=== PATIENT | male | born 1960 | race Caucasian/White ===

== ENCOUNTER 2022-09-26 22:19 | Emergency (ER) | payer MEDICAID, OTHER ==
[~2022-09-26] VITALS: Ht 165.1 cm; Wt 74.0 kg
[2022-09-27 03:33] VITALS: BP 138/76
== END 2022-09-27 06:13 | disposition home or self-care (01) ==
LOC: ER 22:19
DX: S01.01XA Laceration without foreign body of scalp, initial encounter (principal); F10.129 Alcohol abuse with intoxication, unspecified; I10 Essential (primary) hypertension; R51.9 Headache, unspecified; W01.0XXA Fall on same level from slipping, tripping and stumbling without subsequent striking against object, initial encounter; Y93.89 Activity, other specified; Y92.89 Other specified places as the place of occurrence of the external cause; Y99.8 Other external cause status; Y90.8 Blood alcohol level of 240 mg/100 ml or more
CPT/HCPCS: 12001; 36415; 70450; 80320; 99284; Z7610; G0480